=== PATIENT | male | born 1970 | race Caucasian/White ===

== ENCOUNTER 2018-10-21 10:52 | Emergency (ER) | payer SELFPAY ==
[2018-10-21 11:01] VITALS: BP 163/96; PULSE 82; TEMP 98.5; BMI 27.3
--- NOTE | 2018-10-21 11:42 | PDOC ---
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 Has 1 cm puncture wound/laceration between the webspace of his left second and third M CP. States is painful although has sensation to distal of injury 10/21/18 14:49 Occurred: reports: just prior to arrival, this afternoon Severity: reports: mild Method of Injury: Yes: direct blow Loss of Consciousness: no loss of consciousness Associated Symptoms (Fall): denies symptoms Past History - Travel Traveled outside of the country in the last 30 days: No Close contact w/someone who was outside of country & ill: No - Past Medical History Allergies/Adverse Reactions: Allergies Allergy/AdvReac Type Severity Reaction Status Date / Time No Known Allergies Allergy Verified 02/16/15 20:36 Home Medications: Ambulatory Orders Losartan Potassium [Cozaar] 50 mg PO DAILY 02/16/15 COPD: No HTN: Yes - Suicide/Smoking/Psychosocial Hx Smoking History: Never smoked Have you smoked in the past 12 months: No Information on smoking cessation initiated: No Hx Alcohol Use: No Drug/Substance Use Hx: No Review of Systems - Review of Systems Able to Perform ROS?: Yes Is the patient limited Bengali proficient: Yes Constitutional: Yes: See HPI. No: Symptoms Reported Musculoskeletal: Yes: Symptoms Reported, See HPI, Joint Pain, Joint Swelling Integumentary: Yes: Symptoms Reported, See HPI, Bruising Neurological: No: Symptoms reported All Other Systems: Reviewed and Negative *Physical Exam - Vital Signs Last Vital Signs Temp Pulse Resp BP Pulse Ox 98.5 F 82 18 163/96 98 10/21/18 10:58 10/21/18 10:58 10/21/18 10:58 10/21/18 10:58 10/21/18 10:58 - Physical Exam General Appearance: Yes: Nourished, Appropriately Dressed, Apparent Distress, Mild Distress HEENT: positive: FANTASMA, Normal ENT Inspection, TMs Normal, Pharynx Normal Neck: positive: Supple. negative: Tender Respiratory/Chest: positive: Lungs Clear, Normal Breath Sounds Gastrointestinal/Abdominal: positive: Soft. negative: Tender Integumentary: positive: Bruising, Other (centimeter was a laceration on the dorsum of left hand, strong flexion and extension with fingers against resistance and sensation intact) Neurologic: positive: medical accounting clerk II-XII NML intact, Fully Oriented, Alert, Normal Mood/ Affect, Normal Response, Motor Strength 5/5 Procedures - Laceration/Wound Repair Right Anterior Hand Wound Length: to 2.5 cm Wound Explored: clean Wound's Depth, Shape: into muscle Irrigated w/ Saline: Yes Betadine Prep: Yes Anesthesia: 1% Lidocaine Wound Debrided: minimal Wound Repaired With: Sutures Suture Size/Type: 5:0, nylon Number of Sutures: 1 Layer Closure: Yes *DC/Admit/Observation/Transfer Diagnosis at time of Disposition: Puncture wound of hand, left Qualifiers: Encounter type: initial encounter Foreign body presence: without foreign body Qualified Code(s): S61.432A - Puncture wound without foreign body of left hand, initial encounter - Discharge Dispostion Disposition: HOME Condition at time of disposition: Stable Decision to Admit order: No - Referrals Referrals: Madison Lamb MD [Primary Care Provider] - - Patient Instructions Printed Discharge Instructions: DI for Laceration Repair -- Simple Additional Instructions: Rest, elevate hand, avoid excessive exercise or movement for 2-3 days Avoid heavy lifting or exercise until pain and swelling is resolved or until further directed Keep area highly elevated to reduce swelling Soak hand 3-4 times a day for the next 2-3 days until healed in warm soapy water. Reapply bacitracin ointment and bulky dressing. Followup with private physician in one to 2 days if not improving, Return to emergency department for redness, swelling, worsened pain, or evidence of infection May use ibuprofen 2-200 mg tablets every 6 hours as needed for pain - Post Discharge Activity Forms/Work/School Notes: Back to Work
== END 2018-10-21 12:00 | disposition home or self-care (01) ==
LOC: JERFT 10:52
PROC: 0JQK0ZZ Repair Left Hand Subcutaneous Tissue and Fascia, Open Approach (ICD-10-PCS; principal; 2018-10-21)
DX: S61.432A Puncture wound without foreign body of left hand, initial encounter (principal); W26.8XXA Contact with other sharp object(s), not elsewhere classified, initial encounter; Y93.89 Activity, other specified; Y92.89 Other specified places as the place of occurrence of the external cause; Y99.0 Civilian activity done for income or pay
CPT/HCPCS: 99281-25

== ENCOUNTER 2021-08-24 13:20 | Emergency (ER) | payer OTHER ==
[2021-08-24 13:53] VITALS: BMI 27.9
[2021-08-24] MEDS ORDERED: IBUPROFEN 400 MG TABLET (FP) PO ONE ×2 (14:31→14:35)
[2021-08-24] MEDS ORDERED: ONDANSETRON 4 MG TABLET PO ONE ×2 (14:31→14:34)
[2021-08-24] MEDS ORDERED: LIDOCAINE 5% TOPICAL PATCH TP ONE (14:31)
[2021-08-24] MEDS ORDERED: LIDOCAINE 5% TOPICAL PATCH ONE (14:34)
[2021-08-24] MEDS ORDERED: SODIUM CHLORIDE 0.9% 500 ML INFUS.BAG IV ONE (15:01)
[2021-08-24 15:08] LABS: EPI CELLS 6 /uL (0-25.1); HYALINE CASTS 1 /uL (0-3.1); PH,URINE 6.5 (5.0-8.0); URINE APPEARANCE CLEAR; URINE BACTERIA 4 /uL (0-1359); URINE BILIRUBIN NEGATIVE (NEGATIVE); URINE COLOR YELLOW; URINE GLUCOSE (UA) NEGATIVE (NEGATIVE); URINE KETONE TRACE (NEGATIVE); URINE LEUK ESTERASE NEGATIVE (NEGATIVE); URINE NITRITE NEGATIVE (NEGATIVE); URINE PROTEIN 1+ (NEGATIVE); URINE RBC 26 /uL (0-23.9); URINE WBC 2 /uL (0-25.8)
[2021-08-24 15:56] LABS: BASO % 0.3 % (0-2.0); EOS % 0.3 % (0-4.5); HEMATOCRIT 41.5 % (35.4-49); HEMOGLOBIN 14.3 GM/dL (11.7-16.9); LYMPH % 14.3 % (8-40); MCH 30.2 pg (25.7-33.7); MCHC 34.4 g/dl (32.0-35.9); MEAN CELL VOLUME 87.8 fl (80-96); MEAN PLT VOLUME 8.1 fl (7.5-11.1); MONO % 10.4 % (3.8-10.2); NEUT % 74.7 % (42.8-82.8); PLATELET COUNT 251 10^3/uL (134-434); RBC 4.73 M/mm3 (4.00-5.60); RDW 13.2 % (11.9-15.9); WHITE BLOOD COUNT 16.4 K/mm3 (4.0-10.0)
[2021-08-24 16:29] LABS: ALBUMIN 4.1 g/dl (3.4-5.0); BILIRUBIN,TOTAL 0.9 mg/dL (0.2-1); BLOOD UREA NITROGEN 14.7 mg/dL (7-18); CREATININE 0.8 mg/dL (0.55-1.3); TOT PROT 7.8 g/dl (6.4-8.2)
[2021-08-24 19:12] VITALS: BP 145/92; PULSE 85; TEMP 98.7
[2021-08-24] MEDS ORDERED: LIDOCAINE PATCH REMOVAL MC SCH (22:00)
== END 2021-08-24 20:01 | disposition home or self-care (01) ==
LOC: JER 13:20
DX: D72.829 Elevated white blood cell count, unspecified (principal); R50.9 Fever, unspecified; R10.9 Unspecified abdominal pain
CPT/HCPCS: 0241U-QW; 36415; 71046-TC-FY; 74176-TC; 80053; 81003; 85025; 87086; 99285-25